=== PATIENT | female | born 1955 | race Two or more races ===

== ENCOUNTER 2019-11-29 08:26 | Outpatient (CLI) | payer OTHER | END 2019-11-29 08:43 | disposition home or self-care (01) | LOC: SONOGRAMA 08:26 → MAMO-SONO 08:45 | PROVIDERS: ATTEND Obstetrics & Gynecology | DX: N95.0 Postmenopausal bleeding (principal); E28.0 Estrogen excess; R93.89 Abnormal findings on diagnostic imaging of other specified body structures ==